=== PATIENT | female | born 1995 | race Caucasian/White ===

== ENCOUNTER 2017-03-06 15:24 | Observation (INO) | payer BC, MEDICAID ==
[~2017-03-06 15:24] MED LIST: IBUPROFEN800 M1 PO; IRON15 MG/1 ML PO; PRENATAL VITAM1 EAC5 PO; PROVENTIL HFA6.7 G1; TYLENOL325 M2 PO; [UNRECOGNIZED DRUG - OTHER] PO
[2017-03-06] MEDS ORDERED: VALTREX500 M1 PO (15:58)
== END 2017-03-06 16:40 ==
LOC: LDR 15:24
PROVIDERS: ADMIT Specialist
DX: Z03.71 Encounter for suspected problem with amniotic cavity and membrane ruled out (principal); Z3A.37 37 weeks gestation of pregnancy; Z79.899 Other long term (current) drug therapy; Z91.018 Allergy to other foods; Z91.048 Other nonmedicinal substance allergy status; Z98.890 Other specified postprocedural states

== ENCOUNTER 2017-03-15 08:19 | Inpatient (IN) | payer BC, MEDICAID ==
[~2017-03-15 08:19] MED LIST changes: +VALTREX500 M1 PO
[2017-03-15 10:50] LABS: EOS % 0.1 % (0-7); HCT-HEMATOCRIT 36.2 % (34.0-49.0); HGB-HEMOGLOBIN 12.2 gm/dl (12.0-15.5); IMMATURE GRANULOCYTES ABSOLUTE 0.05 tho/cmm (0-0.03); IMMATURE GRANULOCYTES PERCENT 0.4 % (0-0.3); LYMPH % 9.2 % (20-45); LYMPH ABSOLUTE COUNT 1.3 tho/cmm (0.8-4.5); MCH (MEAN CORPUSCULAR HGB) 31.2 pg (28.0-32.0); MCHC MEAN CORPUSCULAR HGB CONC 33.7 % (32.0-36.0); MCV (MEAN CELL VOLUME) 92.6 fl (82.0-96.0); MEAN PLATELET VOLUME 10.7 cmc (9.4-12.4); MONO % 8.6 % (0-12); MONOCYTE ABSOLUTE COUNT 1.2 tho/cmm (0.0-1.2); NEUTROPHIL ABSOLUTE COUNT 11.2 tho/cmm (1.6-8.0); NEUTROPHIL-AUTOMATED 11.2 tho/cmm (1.6-8.0); NEUTROPHILS % 81.7 % (40-80); PLATELET COUNT 104 tho/cmm (150-450); RED BLOOD COUNT 3.91 mil/cmm (4.00-5.20); RED CELL DISTRIBUTION WIDTH 14.1 % (12.4-16.4); WHITE BLOOD COUNT 13.6 tho/cmm (4.0-10.0)
[2017-03-16] MEDS ORDERED: IBUPROFEN800 M1 PO (05:42)
[2017-03-16 06:08] LABS: BASO % 0.1 % (0-2); EOS % 0.5 % (0-7); EOSINOPHIL ABSOLUTE COUNT 0.1 tho/cmm (0.0-0.7); HCT-HEMATOCRIT 29.3 % (34.0-49.0); IMMATURE GRANULOCYTES ABSOLUTE 0.06 tho/cmm (0-0.03); IMMATURE GRANULOCYTES PERCENT 0.4 % (0-0.3); LYMPH ABSOLUTE COUNT 1.9 tho/cmm (0.8-4.5); MCH (MEAN CORPUSCULAR HGB) 31.4 pg (28.0-32.0); MCHC MEAN CORPUSCULAR HGB CONC 34.1 % (32.0-36.0); MCV (MEAN CELL VOLUME) 92.1 fl (82.0-96.0); MEAN PLATELET VOLUME 10.2 cmc (9.4-12.4); MONO % 9.3 % (0-12); MONOCYTE ABSOLUTE COUNT 1.4 tho/cmm (0.0-1.2); NEUTROPHIL ABSOLUTE COUNT 11.5 tho/cmm (1.6-8.0); NEUTROPHIL-AUTOMATED 11.5 tho/cmm (1.6-8.0); NEUTROPHILS % 76.7 % (40-80); PLATELET COUNT 107 tho/cmm (150-450); RED BLOOD COUNT 3.18 mil/cmm (4.00-5.20); RED CELL DISTRIBUTION WIDTH 14.3 % (12.4-16.4)
== END 2017-03-17 12:25 | DRG 774 ==
LOC: LDR 08:19 → OBGD 17:49
PROVIDERS: ADMIT Specialist
PROC: 10E0XZZ Delivery of Products of Conception, External Approach (ICD-10-PCS; principal; 2017-03-15)
PROC: 10907ZC Drainage of Amniotic Fluid, Therapeutic from Products of Conception, Via Natural or Artificial Opening (ICD-10-PCS; 2017-03-15)
DX: O99.513 Diseases of the respiratory system complicating pregnancy, third trimester (principal); O98.32 Other infections with a predominantly sexual mode of transmission complicating childbirth; A60.00 Herpesviral infection of urogenital system, unspecified; J45.909 Unspecified asthma, uncomplicated; O77.0 Labor and delivery complicated by meconium in amniotic fluid; Z3A.38 38 weeks gestation of pregnancy; Z37.0 Single live birth; O99.824 Streptococcus B carrier state complicating childbirth
CPT/HCPCS: J2590